=== PATIENT | male | born 1945 | race Caucasian/White ===

== ENCOUNTER 2016-09-07 10:30 | Outpatient (RCR) | payer MEDICARE, BC | END 2016-09-29 | LOC: M CR 10:30 | PROVIDERS: ATTEND Internal Medicine Cardiovascular Disease | DX: Z51.89 Encounter for other specified aftercare (principal); Z95.1 Presence of aortocoronary bypass graft ==

== ENCOUNTER → 2018-06-15 | Outpatient (CLI) | payer OTHER | LOC: M CARPUL 07:24 | DX: R06.00 Dyspnea, unspecified (principal) | CPT/HCPCS: 93306 ==